=== PATIENT | female | born 1980 ===

== ENCOUNTER 2022-12-17 04:34 | Emergency (ER) | payer SELFPAY ==
[2022-12-17 04:42] VITALS: BP 167/97; PULSE 90; RESP 16; TEMP 98.4; BMI 31.8
== END 2022-12-17 05:04 | disposition home or self-care (01) ==
LOC: FER 04:34
DX: T19.2XXA Foreign body in vulva and vagina, initial encounter (principal)
CPT/HCPCS: 99282-25